=== PATIENT | female | born 1975 | race Caucasian/White ===

== ENCOUNTER 2025-06-30 07:57 | Day surgery (SDC) | payer MEDICARE, MEDICAID ==
[2025-06-30] MEDS ORDERED: Propofol 200 MG/20 ML SDV ONE (10:00)
[2025-06-30 10:18] VITALS: BP 123/90; PULSE 86
== END 2025-06-30 11:31 | disposition home or self-care (01) ==
LOC: LB.SDS 07:57
PROVIDERS: ATTEND Surgery
DX: D12.3 Benign neoplasm of transverse colon (principal); D12.4 Benign neoplasm of descending colon; D12.5 Benign neoplasm of sigmoid colon; K63.5 Polyp of colon; K52.9 Noninfective gastroenteritis and colitis, unspecified; R19.5 Other fecal abnormalities; E03.9 Hypothyroidism, unspecified; E11.9 Type 2 diabetes mellitus without complications; E78.5 Hyperlipidemia, unspecified; E66.9 Obesity, unspecified; F17.210 Nicotine dependence, cigarettes, uncomplicated; Z88.5 Allergy status to narcotic agent; Z68.41 Body mass index [BMI] 40.0-44.9, adult; Z87.19 Personal history of other diseases of the digestive system; Z79.899 Other long term (current) drug therapy
CPT/HCPCS: 82947; J2704; J7030